=== PATIENT | female | born 1945 | race Two or more races ===

== ENCOUNTER 2018-01-11 08:14 | Outpatient (CLI) | payer OTHER | END 2018-01-11 08:26 | disposition home or self-care (01) | LOC: RX STUDY 08:14 | DX: R13.19 Other dysphagia (principal) ==

== ENCOUNTER 2021-08-18 17:06 | Emergency (ER) | payer OTHER ==
[~2021-08-18] VITALS: Ht 147.3 cm; Wt 50.8 kg
[2021-08-18] MEDS ORDERED: GLUMETZA500 MG PO (17:25)
[2021-08-18] MEDS ORDERED: ATACAND16 MG PO (17:26)
[2021-08-18] MEDS ORDERED: SYNTHROID50 MCG PO (17:26)
[2021-08-18] MEDS ORDERED: ATORVASTATIN CA10 MG PO (17:27)
== END 2021-08-18 21:24 | disposition home or self-care (01) ==
LOC: ER 17:06
DX: U07.1 COVID-19 (principal); E11.9 Type 2 diabetes mellitus without complications; Z79.84 Long term (current) use of oral hypoglycemic drugs; I10 Essential (primary) hypertension

== ENCOUNTER 2021-08-20 14:45 | Outpatient (CLI) | payer OTHER ==
[~2021-08-20 14:45] MED LIST: ATACAND16 MG PO; ATORVASTATIN CA10 MG PO; GLUMETZA500 MG PO; SYNTHROID50 MCG PO
== END 2021-08-20 15:10 | disposition home or self-care (01) ==
LOC: ASH CLINIC 14:45
PROVIDERS: ATTEND General Practice
DX: U07.1 COVID-19 (principal)

== ENCOUNTER 2022-03-26 23:18 | Emergency (ER) | payer OTHER ==
[~2022-03-26] VITALS: Ht 160 cm; Wt 52.2 kg
[2022-03-27] MEDS ORDERED: CEPHALEXIN500 MG PO (03:07)
== END 2022-03-27 03:14 ==
LOC: ER 23:18
DX: R42 Dizziness and giddiness (principal); E11.649 Type 2 diabetes mellitus with hypoglycemia without coma; Z79.84 Long term (current) use of oral hypoglycemic drugs; I10 Essential (primary) hypertension

== ENCOUNTER 2022-05-16 11:38 | Emergency (ER) | payer OTHER ==
[~2022-05-16] VITALS: Ht 160 cm; Wt 54.4 kg
[~2022-05-16 11:38] MED LIST changes: +CEPHALEXIN500 MG PO
== END 2022-05-16 14:07 ==
LOC: ER 11:38
DX: J04.0 Acute laryngitis (principal); N76.0 Acute vaginitis; E11.9 Type 2 diabetes mellitus without complications; I10 Essential (primary) hypertension; E03.9 Hypothyroidism, unspecified

== ENCOUNTER 2023-05-01 16:05 | Emergency (ER) | payer OTHER ==
[~2023-05-01] VITALS: Ht 154.9 cm; Wt 55.3 kg
[2023-05-01] MEDS ORDERED: ORPHENADRINE CITRATE 30 MG/ML AMPUL IM ONE (18:45)
[2023-05-01] MEDS ORDERED: KETOROLAC TROMETHAMINE 30 MG VIAL IM ONE (18:45)
== END 2023-05-01 20:45 | disposition home or self-care (01) ==
LOC: ER 16:06
DX: S43.429A Sprain of unspecified rotator cuff capsule, initial encounter (principal); M11.211 Other chondrocalcinosis, right shoulder
CPT/HCPCS: 73030; 73110; 96372; 99283; J1885; J2360

== ENCOUNTER 2024-11-17 14:28 | Emergency (ER) | payer OTHER ==
[~2024-11-17] VITALS: Ht 152.4 cm; Wt 45.4 kg
[2024-11-17] MEDS ORDERED: TRAZODONE HCL150 MG (15:15)
[2024-11-17] MEDS ORDERED: DONEPEZIL HCL10 MG (15:15)
[2024-11-17 17:06] LABS: BASO % 0.4 % (0.1-1.2); EOS # 0.07 (0.04-0.54); EOS % 1.5 % (0.7-7.0); LYMPH # 0.82 (1.18-3.74); LYMPH % 17.0 % (19.3-53.1); MEAN PLATELET VOLUME 9.30 fl (9.4-12.4); MONO # 0.41 (0.24-0.82); MONO % 8.5 % (4.7-12.5); NEUT # 3.48 (1.56-6.13); NEUT % 72.2 % (34.0-71.1); RED CELL DISTRIBUTION WIDTH 14.8 % (11.6-14.4)
[2024-11-17 17:57] LABS: ALT/SGPT 23.0 U/L (12-78); AST/SGOT 21.0 U/L (15-37); BILIRUBIN TOTAL 0.66 mg/dL (0.3-1.2); BUN CREA RATIO 26.0 (7.0-25.0); CREATININE SERUM 0.86 mg/dL (0.55-1.02); GFR 63.98; GLOBULINA 3.4 G/DL (2.4-3.5); GLUCOSE FASTING 192.0 mg/dL (65-100); OSMOLALITY SERUM 292.0 MOSM/KG (275-295)
== END 2024-11-17 20:25 ==
LOC: ER 14:28
PROVIDERS: Preventive Medicine Public Health & General Preventive Medicine
DX: G89.11 Acute pain due to trauma (principal); M25.422 Effusion, left elbow; I10 Essential (primary) hypertension; E11.9 Type 2 diabetes mellitus without complications; Z79.84 Long term (current) use of oral hypoglycemic drugs